=== PATIENT | male | born 1955 | race Caucasian/White ===

== ENCOUNTER 2017-08-26 20:08 | Inpatient (IN) | payer OTHER ==
[~2017-08-26] VITALS: Ht 175.3 cm; Wt 56.7 kg
--- NOTE | ~2017-08-26 | PR ---
[place], [place] PROGRESS NOTE [id number] UNIT #: [id number] ROOM: 315 DOCTOR: NASIR PARNELL MD BIRTHDATE: [birth year] DOS: 08/31/2017 SUBJECTIVE: The patient seen and I spoke with the staff. Per staff, the patient is somewhat irritable, had some tremor, but no behavior problems or issues. The patient was in his room. He was pleasant and cooperative. He said he still feels depressed and fleeting suicidal ideation, but no intent or plan. He denied any other side effects from the medication besides he has a tremor. MENTAL STATUS EXAMINATION: Pleasant and cooperative. Described his mood as "down." Affect was constricted. Thought process goal directed. No flight of ideas or loosening of association. He denied auditory or visual hallucination. No delusion or paranoia noted. He still had fleeting suicidal ideation, but no intent or plan. Denied any homicidal ideation, intent or plan. Insight and judgment poor to fair. ASSESSMENT: Schizoaffective disorder. PLAN: 1. Continue my current medication and care. 2. We will check the lithium level tomorrow morning. 3. Continue redirection and supportive care. NASIR PARNELL MD CM:PNTRANS [id number] NASIR PARNELL MD 08/31/17 3894 interface
--- NOTE | ~2017-08-26 | PR ---
[place], [place] PROGRESS [id number] UN[facility] #: [id number] ROOM: 315 DOCTOR: NASIR PARNELL MD BIRTHDATE: [birth year] DOS: 09/01/2017 SUBJECTIVE: The patient seen and spoke with the staff. Per staff, the patient is doing well. No visual problems or issues. His lithium level came back to 1.18. He is still shaking. The patient was pleasant and cooperative. He was in his bed. He says that he is feeling better, but still depressed and suicidal. He denies any side effect from the medication. He reported good sleep and appetite. MENTAL STATUS EXAMINATION: Pleasant, cooperative, described his mood as "okay and good." Affect was constricted. Thought process goal directed. No flight of ideas, loosening of association. He denied auditory or visual hallucination. No delusion or paranoia noted. He had fleeting suicidal ideation, but no intent or plan. Denied any homicidal ideation, intent or plan. Insight and judgment poor to fair. ASSESSMENT: Schizoaffective disorder. PLAN: 1. I will reduce his lithium to 300 mg twice a day. 2. I will add Cogentin 0.5 mg p.o. b.i.d. 3. Continue redirection. 4. Supportive care. NASIR PARNELL MD CM:PNTRANS 48 [phone] NASIR PARNELL MD 09/01/172151 interface
--- NOTE | ~2017-08-26 | DS ---
[place], [place] DISCHARGE SUMMARY NAME: ANTONIO CALL UNIT #: [id number] ROOM: 315 DOCTOR: SHILA GONZALEZ MD BIRTHDATE: [birth year] DOS: 09/05/2017 ADDENDUM. CHIEF COMPLAINT: "Doc, I'm a little shaky, but I am ready to go." SUMMARY OF THE VISIT: The patient was interviewed in the dining area where he was sitting by himself. He smiled as I approached and shook my hand. He did state that he is feeling much better other than the fact that he is noticing bilateral upper extremity tremors. Otherwise, he feels that he is ready to go. We discussed at length him going to [place] and me being able to follow him there. He convincingly denies any symptomatology other than the mild tremors that he notes. DIAGNOSIS: Same as the previous discharge summary. MENTAL STATUS: The patient is alert and oriented to person, place and time. Mood seems strongly euthymic. There is no hypomania, parish or psychosis. Memory is intact. DIAGNOSIS: As per the discharge summary dictated on 09/04/2017. DISPOSITION: To [place]. Scripts have been printed and will be sent with him there. I will follow him upon his admission to [place]. SHILA GONZALEZ MD CM:DISCHARG 0930 SHILA GONZALEZ MD 09/10/17 0809 interface
--- NOTE | ~2017-08-26 | DS ---
[place], [place] DISCHARGE SUMMARY NAME: ANTONIO CALL [facility] #: [id number] UNIT #: [id number] ROOM: 315 DOCTOR: SHILA GONZALEZ MD BIRTHDATE: [birth year] DOS: 09/04/2017 CHIEF COMPLAINT: "I am hearing voices." HISTORY OF PRESENT ILLNESS: This is a 61-year-old male who is homeless and currently living at the [facility]. The patient presented to [facility] with a chief complaint of having command auditory hallucinations. The voices were telling him to slit his throat and the voices have been persistently telling him to hurt himself. He does report being noncompliant with his medication since he has been living on the [address]. He was discharged somewhat recently from [facility] due to reaching maximum benefit. Since that time, the patient has been noncompliant with his meds and his psychotic symptoms have flared to the point where they represent a significant risk of harm to himself and others. He was ultimately sent here on an involuntary basis to rule out organic factors, to stabilize on medication, to engage in individual and blanco milieu activity. PAST MEDICAL HISTORY: Remarkable for COPD, dementia, hepatitis C, hyperlipidemia, hypertension and insulin-dependent diabetes. SUMMARY OF HOSPITAL COURSE: The patient was admitted to the unit where I immediately started him on Invega 6 mg a day with the plan ultimately to switch him to Invega Sustenna to improve compliance. His lithium was changed from 600 mg at bedtime to Eskalith CR 450 mg twice daily in order to bring the lithium into a more therapeutic range to help augment the effectiveness of the atypical antipsychotic. Additionally, he was started on Remeron as an antidepressant to aid sleep and improve appetite. After several days of taking the oral Invega, he was loaded with Invega Sustenna 234 mg IM with good results. The patient who entered the unit, very agitated, on edge and irritable very quickly became subdued, quiet and interactive. He was bright, pleasant and cooperative and was able to engage readily in individual and group activities. The patient openly admitted that he did not feel that he could live independently and felt that he needed some supervision to make certain that he is eating correctly, managing his diabetes correctly and also managing his psychotropic medicine. Dr. Ivan Patel, psychologist, was consulted to see if the patient was competent and Dr. Patel deemed him incompetent and felt that a guardian or DPOA would be needed to assist this gentleman in making decisions. Ultimately, the patient applied for PASAR through the [facility], which was granted and the patient was discharged then to a long-term care facility for further followup. MENTAL STATUS AT DISCHARGE: The patient was alert and oriented to person, place and approximate to time. Mood was euthymic. Affect appropriate. There was no longer symptom suggestive of parish, hypomania or psychosis. No command hallucinations were present. No delusions were present. He was tolerating the current medication regimen well without tardive dyskinesia, extrapyramidal symptoms, sedation or somnolence. Memory for short term events had some gaps, otherwise he was fairly intact. FINAL DIAGNOSIS: Schizoaffective disorder. [place], [place] DISCHARGE SUMMARY NAME: ANTONIO CALL UNIT #: [id number] ROOM: [facility] DOCTOR: SHILA GONZALEZ MD BIRTHDATE: [birth year] PLAN: All of the patient's prescriptions have been printed and will be sent with him to the long-term care facility to which he is going to reside in. I will follow him upon his return there. Psychiatrically, medically, the patient was stable. The patient was happy with the idea of going into a long-term care facility and was stable upon discharge. SHILA GONZALEZ MD CM:REKHA [id number] SHILA GONZALEZ MD 09/04/17 1001 interface
--- NOTE | ~2017-08-26 | CON ---
[place], [place] REPORT OF CONSULTATION [id number] UNIT #: [id number] ROOM: 315 DOCTOR: KATHERINE RYAN ED.D ([place]) BIRTHDATE: [birth year] DOS: 08/27/2017 HISTORY OF PRESENT ILLNESS: The patient is a 61-year-old male referred by Dr. Boland for competency evaluation. At the present time, he is on [facility]. He states he is and has three children in [place]. He states he has no contact with his children. His parents are both . He has 3 brothers and 4 sisters; however, he has no contact with them either. According to the patient, he has most recently been living in [place]. He believes at the present time, he is in [place]. He was actually sent to the hospital from [facility] in [place], [place] and prior to that, he had been at the [facility] which is a homeless correction in [place]. He does not know his doctor. His medical history is pertinent for insulin-dependent diabetes mellitus, hypertension, COPD, hepatitis C, dementia and schizoaffective disorder. He is presently on Invega, Remeron, Eskalith and insulin. He states that he formerly drank significant amounts of alcohol, but quit 1 year ago. He continues to smoke 1/2 pack of cigarettes per day. He was awake, alert and oriented only to person. He had no idea where he was and stated he was in a hospital in [place]. He had no idea he was in [place], [place]. He had no idea how he came to be at the hospital. His short term memory is clearly impaired. His insight, judgment and concentration are very poor. In my opinion, this patient is clearly not competent to make informed healthcare decisions. He does not have a power of real estate associate attorney according to his records and I did complete an expert evaluation for guardianship. DIAGNOSES: 1. Schizoaffective disorder. 2. Major neurocognitive disorder - Alzheimer's disease. RECOMMENDATIONS: In my opinion, this patient needs a guardian. Thank you very much for this consult. KATHERINE RYAN ED.D CM:CONSTR:REPORT OF CONSULTATION 1207 08/27/17 1222 interface SHILA BOLAND MD
--- NOTE | ~2017-08-26 | PR ---
[place], [place] PROGRESS NOTE NAME: ANTONIO CALL UNIT #: [id number] ROOM: 315 DOCTOR: SHILA GONZALEZ MD BIRTHDATE: [birth year] DOS: 09/03/2017 CHIEF COMPLAINT: "I hope to be going soon." SUMMARY OF THE VISIT: The patient was interviewed as he sat eating breakfast in the dining area. He stopped and engaged readily in a polite conversation. He was very engaging. He reports that he is feeling better and is hopeful to be able to have a successful PASAR go through, so he can be placed into a long-term care facility. He reports that the current medication regimen is working as far as eliminating the psychotic symptoms and mood swings. He convincingly denies medication side effects. MENTAL STATUS: He is alert and oriented. Mood does seem to be strongly trending towards euthymia. Affect is more appropriate. There is no parish, hypomania or psychosis. Memory is intact. PLAN: He will be receiving his first Invega Sustenna injection of 234 mg IM today. I will give him an order for his secondary loading dose of 156 mg IM on September 09 and every month thereafter. We will continue to explore alternative placement options, discharging when stable. SHILA GONZALEZ MD CM:PNTRANS 1030 1038 SHILA GONZALEZ MD 09/03/17 1036 interface
--- NOTE | ~2017-08-26 | PR ---
[place], [place] PROGRESS NOTE NAME: ANTONIO CALL UNIT #: [id number] ROOM: 315 DOCTOR: SHILA GONZALEZ MD BIRTHDATE: [birth year] DOS: 09/02/2017 CHIEF COMPLAINT: "I had a good weekend, thank you doctor." SUMMARY OF THE VISIT SUMMARY OF THE VISIT: The patient was interviewed as he was sitting finishing his breakfast in the dining area. He engaged readily in conversation. He reports that he is feeling better and that the psych medicines have started to take strong effect and he is happy here and not having the auditory hallucinations as he had upon admission. He also reports no side effects from the medicine. He does not feel tired, dizzy, lightheaded. There is no tremor or other tardive dyskinesia or extrapyramidal like symptom. He is hopeful to be able to get placed into a long-term care facility because of his plethora of physical needs and mental status issues. MENTAL STATUS: He is alert and oriented. Mood does seem to be strongly trending towards euthymia. Affect is more appropriate. There is no parish or hypomania. There are no gross psychotic symptoms. Memory for the most part is intact with some gaps. PLAN: [place] level is high therapeutic at 1.18 without side effects noted. I will renew his p.r.n. Ativan. I will order Invega Sustenna 234 mg IM to be given on 09/03/2017 to improve compliance post-discharge. We will engage in individual and blanco milieu activity, discharging to the least restrictive environment when psychiatrically stable. SHILA GONZALEZ MD CM:PNTRANS 7 [id number] SHILA GONZALEZ MD 09/02/17 1017 interface
--- NOTE | ~2017-08-26 | PR ---
[place], [place] PROGRESS NOTE NAME: ANTONIO CALL UNIT #: [id number] ROOM: 315 DOCTOR: SHILA GONZALEZ MD BIRTHDATE: [birth year] DOS: 08/28/2017 CHIEF COMPLAINT: "Yes you can come in." SUMMARY OF THE VISIT: The patient was interviewed while he was lying in bed once again as opposed to yesterday, however, he was not lying there with the covers over his head, nor was he irritable, short and terse; in fact, he was the exact opposite. He engaged readily in conversation. He was very polite. He reports that he slept well, had a good breakfast. We talked at length about the possibility of looking back into placement options such as [facility] or the similar place and he nodded in approval. He does report that he is tolerating the current medication regimen well and notes no side effects. MENTAL STATUS: He is alert and oriented. There are some time gaps. Mood does seem to be trending towards euthymia. Affect is more appropriate. There is no parish or hypomania. There are no auditory or visual hallucinations at the present time. There is no tardive dyskinesia, extrapyramidal symptoms, sedation or somnolence. PLAN: I will continue to move up the Exelon and Namenda bringing Exelon patch from 4.6 mg a day to 9.5 mg a day and increasing the Namenda from a total of 10 mg a day to 15 mg a day. Routine screening examination showed him to have a low vitamin D level of 8.3. I will supplement with vitamin D 50,000 international units weekly. Continue to engage in individual and blanco milieu activity, returning to the least restrictive environment when psychiatrically stable. SHILA GONZALEZ MD CM:PNTRANS 0932 1008 SHILA GONZALEZ MD 08/28/17 1006 interface
--- NOTE | ~2017-08-26 | PR ---
[place], [place] PROGRESS NOTE NAME: ANTONIO CALL [facility] #: [id number] UNIT #: [id number] ROOM: 315 DOCTOR: NASIR PARNELL MD BIRTHDATE: [birth year] DOS: 08/30/2017 SUBJECTIVE: The patient seen and spoke with the staff. Per staff, the patient slept well last night, did not ask for any p.r.n. medication. He is compliant with his medication, did not have any side effect from the medication. The patient was pleasant and cooperative. He acknowledges auditory hallucination and also talked about fleeting suicidal ideation. He mentioned that he will talk with the staff if at any point, his thoughts become stronger. He reports good sleep and appetite. MENTAL STATUS EXAMINATION: The patient was pleasant and cooperative. Described his mood as "okay." Affect, mood congruent. Thought process, goal directed. No flight of ideas, loosening of association. He reported auditory hallucination, not command type. Denied visual hallucination. No delusion or paranoia noted. He had fleeting suicidal ideation, but no intent or plan. Denied any homicidal ideation, intent or plan. Insight and judgment, poor to fair. ASSESSMENT: Schizoaffective disorder. PLAN: 1. Continue present medication and care. 2. Continue redirection. 3. Encourage activity and groups. NASIR PARNELL MD CM:PNTRANS 2259 0015 NASIR PARNELL MD 08/31/17 0013 interface
--- NOTE | ~2017-08-26 | WRIGHTHP ---
[place], [place] PATIENT HISTORY AND PHYSICAL EXAM [id number] UN[facility] #: [id number] ROOM: 315 DOCTOR: SHILA GONZALEZ MD BIRTHDATE: [birth year] DOS: 08/27/2017 CHIEF COMPLAINT: "I am hearing voices." HISTORY OF PRESENT ILLNESS: This is a 61-year-old male who is homeless and living at the [facility]. He presented to [facility] with a chief complaint of having command auditory hallucinations. He was suicidal with a plan to slit his throat, stating that the voices have been telling him to hurt himself. He reports he has been noncompliant with his medication. He has been living on the street for sometime after being discharged from [facility]. The patient has a lengthy history of schizophrenia as well as a history of dementia and hep C. He is admitted now to rule out organic factors, stabilize on medication, returning to the least restrictive environment when stable. PAST MEDICAL HISTORY: Remarkable for COPD, dementia, hepatitis C, hyperlipidemia, hypertension and insulin-dependent diabetes. MENTAL STATUS: The patient is alert and oriented with time gaps. Mood is rather depressed and he is flat, blunted, and constricted. He endorses significant auditory hallucinations, most are command in nature, telling him to hurt himself. DIAGNOSIS: Schizoaffective disorder. PLAN: I have already started him on Invega and plan is to load him with Invega Sustenna here. I have started him on Remeron as an antidepressant at nighttime. I will change his lithium from 600 mg at bedtime to Eskalith CR 450 b.i.d. We will continue to attempt to engage him in individual and blanco milieu activity with the plan then to return to the least restrictive environment when stable. SHILA GONZALEZ MD CM:HISPHYS:PATIENT HISTORY AND PHYSICAL EXAMINATION 0 9 SHILA GONZALEZ MD 08/27/1737 interface
--- NOTE | ~2017-08-26 | PR ---
[place], [place] PROGRESS NOTE NAME: ANTONIO CALL UNIT #: [id number] ROOM: 315 DOCTOR: SHILA GONZALEZ MD BIRTHDATE: [birth year] DOS: 08/29/2017 CHIEF COMPLAINT: "I am having trouble sleeping. I can't fall asleep and then I wake up." SUMMARY OF THE VISIT: The patient was interviewed once again as he rested in bed. He was again cooperative and pleasant. He reports that he is having continued problems with sleep, having trouble falling asleep and sustaining sleep. He does reiterate once again that he is hopeful to be able to go back into a intermediate because he feels overwhelmed with trying to meet all of his multiple medical needs and psychiatric needs. He convincingly denies medication side effects. MENTAL STATUS: He is alert and oriented with time gaps. Mood does seem to be more euthymic. Affect is more appropriate. There is no parish or hypomania. There are no auditory or visual hallucinations. Memory has gaps. PLAN: I will maximize both the Namenda and the Exelon, bringing Exelon patch to 13.3 mg a day and Namenda to 10 mg b.i.d. I will utilize Vistaril 100 mg at bedtime as a non-addictive sleep aid, engage in individual and blanco milieu activity, returning to the least restrictive environment when stable. SHILA GONZALEZ MD CM:PNTRANS 8 2 SHILA GONZALEZ MD 08/29/17919 interface
[2017-08-26] MEDS ORDERED: LITHIUM CARBON300 MG PO (20:56)
[2017-08-26] MEDS ORDERED: DULOXETINE HCL60 MG PO (20:57)
[2017-08-26] MEDS ORDERED: MEMANTINE HCL5 MG PO (20:58)
[2017-08-26] MEDS ORDERED: SILENOR6 M1 PO (20:58)
[2017-08-26] MEDS ORDERED: LITHIUM CARBON600 MG PO (21:01)
[2017-08-26] MEDS ORDERED: NOVOLOG FL100 UNIT/1 SQ (21:03)
[2017-08-26 22:19] VITALS: BP 104/90
[2017-08-26 23:07] VITALS: BP 104/90
[2017-08-27 07:27] VITALS: BP 134/85
[2017-08-27 07:52] LABS: BASO % 0.5 % (0.0-1.0); EOS # 0.2 10*3/uL (0.0-0.4); EOS % 2.5 % (1.0-4.0); HEMOGLOBIN 12.1 g/dl (14.0-18.0); LYMPH # 1.7 10*3/uL (1.3-4.4); MEAN CELL VOLUME 92.8 fl (80.0-94.0); MEAN CORPUSCULAR HGB 31.2 pg (27.0-31.0); MEAN CORPUSCULAR HGB CONC 33.6 g/dl (33.0-37.0); MEAN PLATELET VOLUME 10.3 fl (9.6-12.3); MONO # 0.6 10*3/uL (0.1-1.0); MONO % 7.8 % (3.0-9.0); NEUT # 4.8 10*3/uL (2.3-7.9); NEUT % 65.8 % (47.0-73.0); PLATELET COUNT AUTOMATED 230 10*3/uL (130-400); RED BLOOD COUNT 3.88 10*6/uL (4.50-5.90); RED CELL DISTRI WIDTH 15.7 % (0-14.5); WHITE BLOOD COUNT 7.3 10*3/uL (4.8-10.8)
[2017-08-27 08:07] LABS: ALBUMIN 2.7 gm/dl (3.1-4.5); ALKALINE PHOSPHATASE 125 U/L (45-117); BUN 10 mg/dl (7-24); CHLORIDE 109 mmol/L (98-107); CHOLESTEROL 69 mg/dL (<200); POTASSIUM 3.6 mmol/L (3.5-5.1); SGOT/AST 94 IU/L (3-35); SGPT/ALT 78 U/L (12-78); SODIUM 143 mmol/L (136-145); TOTAL PROTEIN 6.6 gm/dL (6.4-8.2); TRIGLYCERIDES 74 mg/dl (<150); VLDL CHOLESTEROL 15 mg/dL (6-40)
[2017-08-27 08:09] LABS: HDL CHOLESTEROL 31 mg/dl (40-60); LDL CHOLESTEROL 23 mg/dL (9-159)
[2017-08-27 08:37] VITALS: BP 134/85
[2017-08-27 10:13] LABS: VITAMIN D, 25-HYDROXY 8.3 ng/mL (30-100)
[2017-08-27 20:00] VITALS: BP 131/76
[2017-08-28 07:15] VITALS: BP 126/73
[2017-08-28 20:00] VITALS: BP 132/72
[2017-08-29 08:56] VITALS: BP 135/71
[2017-08-29 20:00] VITALS: BP 144/81
[2017-08-30 09:35] VITALS: BP 104/63
[2017-08-30 20:10] VITALS: BP 107/75
[2017-08-31 08:04] VITALS: BP 140/84
[2017-08-31 20:00] VITALS: BP 120/62
[2017-09-01 08:05] VITALS: BP 135/78
[2017-09-01 20:15] VITALS: BP 109/72
[2017-09-02 08:08] VITALS: BP 110/76
[2017-09-02 20:10] VITALS: BP 100/66
[2017-09-03 08:14] VITALS: BP 143/77
[2017-09-03 20:00] VITALS: BP 118/71
[2017-09-04 08:00] VITALS: BP 125/71
[2017-09-04] MEDS ORDERED: ATARAX,VISTARIL50 MG PO (09:44)
[2017-09-04] MEDS ORDERED: BENZTROPINE ME0.5 MG PO (09:44)
[2017-09-04] MEDS ORDERED: LITHIUM CARB300 MG PO (09:44)
[2017-09-04] MEDS ORDERED: MIRTAZAPINE15 M2 PO (09:44)
[2017-09-04] MEDS ORDERED: Vitamin D PO (09:44)
[2017-09-04] MEDS ORDERED: INVEGA SUSTENN156 MG IM (09:44)
[2017-09-04] MEDS ORDERED: PALIPERIDONE ER6 MG PO (09:44)
[2017-09-04] MEDS ORDERED: EXELON13.3 MG/21 T (09:44)
[2017-09-04] MEDS ORDERED: MEMANTINE HCL10 MG PO (09:44)
[2017-09-04] MEDS ORDERED: LEVEMIR FL100 UNIT/1 SC ×2 (10:36→14:14)
[2017-09-04 14:13] LABS: ALKALINE PHOSPHATASE 127 U/L (45-117); BUN 14 mg/dl (7-24); CHLORIDE 104 mmol/L (98-107); CREATININE 1.37 mg/dL (0.70-1.30); POTASSIUM 4.7 mmol/L (3.5-5.1); SGOT/AST 111 IU/L (3-35); SGPT/ALT 97 U/L (12-78); SODIUM 134 mmol/L (136-145)
[2017-09-04 20:00] VITALS: BP 122/70
[2017-09-05 07:04] LABS: BASO % 0.6 % (0.0-1.0); EOS # 0.1 10*3/uL (0.0-0.4); HEMATOCRIT 34.6 % (42.0-52.0); HEMOGLOBIN 11.3 g/dl (14.0-18.0); LYMPH # 2.1 10*3/uL (1.3-4.4); MEAN CELL VOLUME 93.3 fl (80.0-94.0); MEAN CORPUSCULAR HGB 30.5 pg (27.0-31.0); MEAN CORPUSCULAR HGB CONC 32.7 g/dl (33.0-37.0); MEAN PLATELET VOLUME 10.3 fl (9.6-12.3); MONO # 0.6 10*3/uL (0.1-1.0); MONO % 7.9 % (3.0-9.0); NEUT # 4.2 10*3/uL (2.3-7.9); NEUT % 59.2 % (47.0-73.0); PLATELET COUNT AUTOMATED 209 10*3/uL (130-400); RED BLOOD COUNT 3.71 10*6/uL (4.50-5.90); WHITE BLOOD COUNT 7.1 10*3/uL (4.8-10.8)
[2017-09-05 07:13] LABS: ALBUMIN 2.7 gm/dl (3.1-4.5); ALKALINE PHOSPHATASE 114 U/L (45-117); BUN 10 mg/dl (7-24); CHLORIDE 109 mmol/L (98-107); CREATININE 0.84 mg/dL (0.70-1.30); POTASSIUM 4.2 mmol/L (3.5-5.1); SGOT/AST 114 IU/L (3-35); SGPT/ALT 91 U/L (12-78); SODIUM 143 mmol/L (136-145); TOTAL PROTEIN 6.6 gm/dL (6.4-8.2)
[2017-09-05 07:48] VITALS: BP 113/77; BP 118/83
[2017-09-05] MEDS ORDERED: BENZTROPINE MESY1 MG PO (09:29)
[2017-09-06 06:13] LABS: HEPATITIS B SURFACE AG Negative (Negative)
[2017-09-06 07:27] LABS: HEPATITIS C VIRUS ANTIBODY >11.0 s/co (0.0-0.9)
== END 2017-09-05 18:12 | DRG 885 ==
LOC: 3N 20:08
PROVIDERS: Psychiatry & Neurology Psychiatry; Registered Nurse
DX: F25.0 Schizoaffective disorder, bipolar type (principal); E11.649 Type 2 diabetes mellitus with hypoglycemia without coma; R45.851 Suicidal ideations; E87.1 Hypo-osmolality and hyponatremia; F02.81 Dementia in other diseases classified elsewhere, unspecified severity, with behavioral disturbance; E78.5 Hyperlipidemia, unspecified; B19.20 Unspecified viral hepatitis C without hepatic coma; D64.9 Anemia, unspecified; R74.0 Nonspecific elevation of levels of transaminase and lactic acid dehydrogenase [LDH]; F01.50 Vascular dementia, unspecified severity, without behavioral disturbance, psychotic disturbance, mood disturbance, and anxiety; G30.9 Alzheimer's disease, unspecified; J44.9 Chronic obstructive pulmonary disease, unspecified; F17.200 Nicotine dependence, unspecified, uncomplicated; I10 Essential (primary) hypertension; Z96.651 Presence of right artificial knee joint; Z79.4 Long term (current) use of insulin; Z59.0 Homelessness; Z90.3 Acquired absence of stomach [part of]; Z82.49 Family history of ischemic heart disease and other diseases of the circulatory system; Z88.8 Allergy status to other drugs, medicaments and biological substances; Z79.899 Other long term (current) drug therapy; Z71.6 Tobacco abuse counseling